=== PATIENT | male | born 1945 | race Caucasian/White ===

== ENCOUNTER 2018-07-11 13:45 | Emergency (ER) | payer OTHER ==
[~2018-07-11] VITALS: Ht 172.7 cm; Wt 122.5 kg
[2018-07-11 14:02] VITALS: BP 153/84
[2018-07-11] MEDS ORDERED: ASPIR 8181 MG PO (14:05)
[2018-07-11] MEDS ORDERED: DICLOFENAC SODI75 MG PO (14:05)
[2018-07-11] MEDS ORDERED: CRESTOR40 MG PO (14:06)
[2018-07-11] MEDS ORDERED: OMEPRAZOLE40 MG PO (14:06)
[2018-07-11] MEDS ORDERED: SYNTHROID125 MC1 PO (14:06)
[2018-07-11] MEDS ORDERED: ZETIA10 MG PO (14:06)
[2018-07-11] MEDS ORDERED: LOPRESSOR50 PO (14:07)
[2018-07-11] MEDS ORDERED: BACTRIM DS TAB1 EACH PO (14:19)
== END 2018-07-11 14:34 | disposition home or self-care (01) ==
LOC: M.ERS 13:45
DX: S91.115A Laceration without foreign body of left lesser toe(s) without damage to nail, initial encounter (principal); I10 Essential (primary) hypertension; E07.9 Disorder of thyroid, unspecified; Z88.0 Allergy status to penicillin; Z90.49 Acquired absence of other specified parts of digestive tract; W20.8XXA Other cause of strike by thrown, projected or falling object, initial encounter; Y93.89 Activity, other specified; Y92.89 Other specified places as the place of occurrence of the external cause; Y99.8 Other external cause status